=== PATIENT | male | born 1985 | race African-American/Black ===

== ENCOUNTER → 2016-07-09 | Outpatient (CLI) | payer OTHER ==
--- NOTE | 2016-07-09 08:06 | REPMRS ---
Patient History The patient states she had a clinical breast exam in June 2016.No known family history of cancer. Indicated problem(s): other indicated problem in the right breast. Gynecomastia Digital Mammo Diagnostic Bilateral: July 09, 2016 - Exam #: [id number] Bilateral CC and MLO view(s) were taken. Technologist: Surekha Ma, Technologist FINDINGS: There are scattered fibroglandular densities. There is no evidence of dominant mass, architectural distortion, or clustered microcalcification typical of malignancy. ASSESSMENT: BI-RADS/ACR category 2 mammogram. Benign finding(s). Findings consistent with gynecomastia. No suspicious abnormality. Recommendation Clinical correlation of both breasts. This mammogram was interpreted with the aid of an FDA-approved computer-aided dectection system. Electronically Signed By: Awais Cunningham MD 07/09/16 0805
== END ==
LOC: M RAD 07:21
PROVIDERS: ATTEND Plastic Surgery
DX: N62 Hypertrophy of breast (principal)